=== PATIENT | male | born 1960 | race Two or more races ===

== ENCOUNTER 2017-02-05 11:52 | Day surgery (SDC) | payer OTHER ==
[2017-02-04 17:25] VITALS: BMI 20.9
[~2017-02-05] VITALS: Ht 170.2 cm; Wt 52.7 kg
[2017-02-05] VITALS (14 sets, daily range): BP systolic 94–118; BP diastolic 57–75; PULSE 84–89; RESP 14–18; Ht 170.2 cm; Wt 52.7 kg
[2017-02-05] MEDS ORDERED: SOD CHLORIDE 0.9% 1,000 ML IV SCH (13:30)
[2017-02-05] MEDS ORDERED: CLINDAMYCIN 600 MG/D5W (PMX) 50 ML IVPB ONE (13:30)
[2017-02-05 13:34] LABS: POTASSIUM 3.8 mmol/L (3.5-5.1)
[2017-02-05 13:35] LABS: CALCIUM 7.4 mg/dl (8.4-10.2); CREATININE 16.57 mg/dl (0.61-1.24)
[2017-02-05] MEDS ORDERED: POLYMYXIN/BACITRACIN 1L IRRIG ONE (14:19)
[2017-02-05] MEDS ORDERED: BUPIVACAINE 0.25% (MPF) 30 ML INJ ONE (14:19)
[2017-02-05] MEDS ORDERED: FENTAnyl 50 MCG/ML VIAL ONE (14:55)
--- NOTE | 2017-02-05 15:53 | OPR ---
Date/Time of Note Date/Time of Note DATE: 02/05/17 TIME: 15:48 Operative Report Procedure Date: Feb 05, 2017 Preoperative Diagnosis incarcerated right inguinal hernia Postoperative Diagnosis incarcerated right inguinal hernia Operation Performed 1. open incarcerated right inguinal hernia repair with ultra pro medium hernia system mesh 2. localized adjacent tissue transfer with the use of skin flaps 14 sq cm defect 3. therapeutic injection of subcutaneous marcaine cpt code [id number] Surgeon: Hellen VILLANUEVA Indications This is a 56-year-old male with chronic kidney disease and on peritoneal dialysis with an incarcerated right inguinal hernia. He requests surgical repair. Risks alternatives benefits and percent were discussed the patient. Potential complications include but not limited to bleeding, increased rates of infection, mesh infection, recurrence of hernia were discussed the patient. Patient's best understanding consents to the operation. Procedure Description Patient is taken to the OR and prepped and draped in usual sterile fashion. Surgical timeout is performed. IV antibiotics were given. Right inguinal oblique incision is made with the 15 blade. Dissection cautery was carried onto the external oblique fascia. The extremity fascia is opened with a 15 blade. This incision is extended medially inferiorly lateral superiorly with Metzenbaum scissors. Ilioinguinal nerve is identified and a neurectomies performed with a 3-0 Vicryl tie. Upon initial inspection the cord structures identified and encircled with a Midland drain there is a large incarcerated indirect hernia. This is reduced and bolster with the distal portion of the ultra parameters to mesh which is secured in place with a running 0 Prolene to the pubic tubercle along the shelving of the inguinal ligament and superiorly to the internal oblique with interrupted 3-0 Vicryl. Onlay meshes were secured in a similar fashion with a running 0 Prolene from the pubic tubercle along the shelving setting the limit. Onlay mesh straps are created and reapproximated around the cord structures to records inguinal ring with interrupted 0 Prolene. Onlay mesh is secured to the internal oblique with interrupted 0 Vicryl. External oblique fascia is closed a running 3-0 Vicryl. Kody's fascia is closed with interrupted 3-0 Vicryl. Due to the large hernia defect skin flaps are raised from superior and inferiorly reapproximated with localized adjacent tissue transfer with the skin flaps. Skin is closed with skin ana m. Therapeutic injection of 16 his Marcaine along incision line is performed. Dry dressing are applied. Hellen VILLANUEVA Feb 05, 2017 15:53
[2017-02-05] MEDS ORDERED: LIDOCAINE 2% (SDV) 5 ML INJ ONE (15:58)
[2017-02-05] MEDS ORDERED: ETOMIDATE 20 MG INJ ONE (15:58)
[2017-02-05] MEDS ORDERED: CEFAZOLIN 1 GM INJ ONE (15:58)
[2017-02-05] MEDS ORDERED: DIPHENHYDRAMINE 50 MG INJ IV PRN (16:00)
[2017-02-05] MEDS ORDERED: ONDANSETRON 4 MG INJ IV PRN (16:00)
[2017-02-05] MEDS ORDERED: HYDROCODONE/APAP (5/325) TAB PO ONE (16:00)
[2017-02-05] MEDS: FENTAnyl 50 MCG/ML VIAL IV PRN ×2 (16:20→16:26)
== END 2017-02-05 18:06 | disposition home or self-care (01) ==
LOC: SDS 11:52
PROVIDERS: ATTEND Surgery
DX: K40.30 Unilateral inguinal hernia, with obstruction, without gangrene, not specified as recurrent (principal); E11.22 Type 2 diabetes mellitus with diabetic chronic kidney disease; N18.6 End stage renal disease; Z99.2 Dependence on renal dialysis
CPT/HCPCS: 14001; 49507; 80048; 82962; C1781; J0690; J2405; J3010; Z7512; Z7610